=== PATIENT | male | born 1985 | race Caucasian/White ===

== ENCOUNTER 2023-06-02 14:49 | Outpatient (CLI) | payer BC, SELFPAY | END 2023-06-02 23:59 | disposition home or self-care (01) | LOC: RT 14:55 | PROVIDERS: PCP Internal Medicine Adolescent Medicine; Visit Provider Internal Medicine Adolescent Medicine | DX: I47.19 Other supraventricular tachycardia (principal); R00.2 Palpitations | CPT/HCPCS: 93270 ==